=== PATIENT | female | born 1965 | race Caucasian/White ===

== ENCOUNTER 2019-11-27 12:07 | Inpatient (IN) ==
[2019-11-27] MEDS ORDERED: VANCOMYCIN/WATER FOR INJ (PEG) 1 GM/200 ML BAG IV ONE (12:39)
[2019-11-27] MEDS ORDERED: HYDROcodone/ACETAMINOPHEN 1 EACH TABLET PO ONE (12:40)
--- NOTE | 2019-11-27 12:47 | ERNOTE ---
Lower Extremity HPI - Narrative Date of Service: 11/27/19 - General Lower Extremities Pain: 2nd toe: right - redness, black top and ulcer on the side. Time Seen by Provider: 11/27/19 12:19 Source: patient Exam Limitations: no limitations - Immun/Allergies/Home Medications Immunizations: IMMUNIZATION HX Immunizations Up to Date Yes History of Influenza Vaccine Yes Hx Pneumococcal Vaccination No Allergies/Adverse Reactions: Allergies Allergy/AdvReac Type Severity Reaction Status Date / Time doxylamine Allergy itching Verified 11/27/19 12:17 [From [facility] (doxylamine)] Home Medications: HOME MEDICATIONS albuterol sulfate 90 mcg/actuation aerosol inhaler 1 inh IH Q6H 03/11/19 [Last Taken Unknown] aspirin 325 mg tablet 325 mg PO DAILY 03/11/19 [Last Taken Unknown] atenolol 25 mg tablet 25 mg PO DAILY 03/11/19 [Last Taken Unknown] cholecalciferol (vitamin D3) 125 mcg (5,000 unit) tablet 5,000 unit PO DAILY 03/11/19 [Last Taken Unknown] lisinopril 2.5 mg tablet 2.5 mg PO DAILY 03/11/19 [Last Taken Unknown] magnesium 250 mg tablet 250 mg PO BID 03/11/19 [Last Taken Unknown] meloxicam 15 mg tablet 15 mg PO DAILY 03/11/19 [Last Taken Unknown] montelukast 10 mg tablet 10 mg PO DAILY 03/11/19 [Last Taken Unknown] multivitamin 1 cap PO DAILY 03/11/19 [Last Taken Unknown] sertraline 100 mg tablet 150 mg PO DAILY tab 03/11/19 [Last Taken Unknown] trazodone 100 mg tablet 100 mg PO DAILY 03/11/19 [Last Taken Unknown] cevimeline 30 mg capsule 30 mg PO TID 07/08/19 [Last Taken Unknown] peg 400-propylene glycol 0.4 %-0.3 % eye drops 1 drp OP BID PRN 07/08/19 [Last Taken Unknown] cyclobenzaprine 5 mg tablet 5 mg PO TID PRN #60 tab 07/28/19 [Last Taken Unknown] omeprazole 40 mg capsule,delayed release 40 mg PO DAILY #90 cap 08/12/19 [Last Taken Unknown] ropinirole 5 mg tablet 20 mg PO BID #180 tab 08/12/19 [Last Taken Unknown] duloxetine 20 mg capsule,delayed release See Rx Instructions .ROUTE .COMPLEX #90 unknown measurement unit code: not specified 09/28/19 [Last Taken Unknown] insulin degludec 200 unit/mL (3 mL) subcutaneous pen 54 unit .ROUTE .COMPLEX #9 ml 10/07/19 [Last Taken Unknown] duloxetine 60 mg capsule,delayed release See Rx Instructions .ROUTE .COMPLEX #90 unknown measurement unit code: not specified 10/29/19 [Last Taken Unknown] fluticasone propionate 50 mcg/actuation nasal spray,suspension 1 spray TIM BID PRN #18.2 ml 11/26/19 [Last Taken Unknown] glimepiride 4 mg tablet 4 mg PO DAILY #90 tab 11/26/19 [Last Taken Unknown] simvastatin 20 mg tablet 20 mg PO DAILY #90 tab 11/26/19 [Last Taken Unknown] - Pain Score Pain Score #1 Pain Score: 7 - History of Present Illness Narrative: Ulcer between L great toe and second toe. Over the last week R second toe got red now black. Prior foot reconstruction in [place] for osteomyelitis. Diabetic but claims she still has sensation in feet. Date (Duration): 12/18/19 Occurred: last week Location of Incident: other - No injury just skin changes Reason for Fall: Reports: other - no fall Loss of Consciousness: Reports: no loss of consciousness Modifying Factors - (Improves): Reports: other - warm soaks as directed by pcp Associated Symptoms: Denies: unable to bear weight Other Injuries: Reports: none Prior Treament: Reports: similar symptoms before - R great toe got fasciitis and needed surgical debridement. Review of Systems - Review of Systems Constitutional: Present: no symptoms reported. Absent: fever, diaphoresis EYE: Present: no symptoms reported ENT: Present: no symptoms reported Musculoskeletal: Present: See HPI Skin: Present: See HPI Neurological: Present: no symptoms reported Endocrine: Absent: excessive sweating, increased thirst, increased urine Hematologic/Lymphatic: Present: no symptoms reported Medical History (Last Reviewed 11/27/19 @ 12:44 by Andrés Wilcox MD) Sjogrens syndrome (Chronic) UTI (urinary tract infection) (Acute) Calculus (=stone) (Acute) Asthma (Chronic) Major depression (Chronic) Arthritis (Chronic) Pain (Chronic) low back pain Fibromyalgia (Chronic) Type 1 diabetes (Chronic) Heart attack (Acute) CKD (chronic kidney disease) stage 3, GFR 30-59 ml/min History of necrotizing fasciitis right foot 2017 Hyperlipidemia Radiculopathy lumbosacral Sacroiliitis Spinal enthesopathy of lumbar region Trochanteric bursitis Type 2 diabetes mellitus Surgical History: Surgical History (Last Reviewed 11/27/19 @ 12:44 by Andrés Wilcox MD) History of tonsillectomy (Acute) History of hysterectomy (Acute) History of cholecystectomy (Acute) Hx of dilation and curettage (Acute) Previous section (Acute) Hx of appendectomy (Acute) History of quadruple bypass (Acute) History of bilateral carpal tunnel release Family History: Family History (Last Reviewed 11/27/19 @ 12:44 by Andrés Wilcox MD) Father Cancer Hypertension Diabetes Heart disease Arthritis Mother Cancer Diabetes Heart disease Arthritis Social History: (Last Reviewed 11/27/19 @ 12:44 by Andrés Wilcox MD) Social History: foster care: No fci: No Marital status: household members: spouse number of children: 3 current occupational status: disabled Highest education level completed: high school graduate Service: No Tobacco: Smoking Status: Former smoker second hand exposure: Yes Alcohol: alcohol intake: former Substance Use: substance use type: does not use Dietary Habits: caffeine: Yes Type: coffee Exercise: Physical activity type: none Physical Exam - Physical Exam General Appearance: Present: wd/wn, alert, no apparent distress, obese Head Exam: Present: normal inspection Ears, Nose, Throat: Present: normal ENT inspection Respiratory: Present: no respiratory distress Cardiovascular/Chest: Present: regular rate, rhythm Gastrointestinal/Abdominal: Present: soft Rectal Exam: Present: deferred Pelvic Exam: Present: deferred Back Exam: Present: normal range of motion Extremity Exam: Present: normal except - - R great toe and MTP has surgical scars and is floppy, no MTP joint remains. Second toe black dorsally with red margin and oozing ulcer on medial side, cultured. Neurological Exam: Present: alert, oriented, normal mood/affect Skin Exam: Present: normal color - Other than foot. Progress - Results and Orders Patient's Lab Results:: I have reviewed the patient's lab results. Results and Orders: CBC essentially normal, WBC 8000. Wound culture and blood culture sent to lab, CMP pending at 1300. DS Orders 11/27/19 12:34 Vancomycin Routine Laboratory Tests 11/27/19 12:50 Sodium 129 L Potassium 5.0 H BUN 38 H Creatinine 1.94 H Random Glucose 517 H - Vital Signs Patient's Vital Signs:: I have reviewed the patient's vital signs. Vital Signs: Vital Signs 11/27/19 12:12 Temperature 35.9 C L Pulse Rate 78 Respiratory Rate 16 Blood Pressure 115/62 O2 Sat by Pulse Oximetry 98 - X-Ray X-Ray #1 X-Ray: foot Interpretation: Interp. by me X-ray Comments: 2 view foot show surgically excised distal 1st MT, no other sierra abnormalities. Bones appear solid, not motheaten. DS - Progress/Reassessment Chief Complaint: Foot Injury/Pain Progress:: Unchanged Plan - Plan Plan: Abnormal renal functions, K of 5.0 and infection prompt desire to admit rather than treat outpatient. Dr. Nikolas Bowen agrees to be the admitting physician and we will consult Dr. Tim NICHOLS. Departure Clinical Impression: Diabetic foot ulcer associated with diabetes mellitus due to underlying condition, Diabetes 1.5, managed as type 1, Diabetic renal disease, Hyperglycemia due to type 1 diabetes mellitus - Departure Disposition: Short Term Hospital Inpatient Condition: Fair Referrals: Tana Hills MD [Primary Care Provider] - Nikolas Bowen DO [Staff Physician] - Olivia Dumont DPM [Staff Physician] -
[2019-11-27 12:55] LABS: Hematocrit 32.3 % (37.0-47.0); Mean Cell Volume 86.4 fl (78-100); Mean Corpuscular Hemoglobin 29.4 pg (27-31); Mean Corpuscular Hgb Conc 34.1 g/dl (32-36); Mean Platelet Volume 10.4 fl (8-12.5); Neutrophil # 5.4 K/mm3 (1.3-6.0); Neutrophil % 67.3 % (42-75.0); Platelet Count 287 K/mm3 (150-450); Red Blood Count 3.74 M/mm3 (4.2-5.4)
[2019-11-27 13:06] LABS: Albumin * 2.9 gm/dl (3.4-5.0); Anion Gap 13.2 mmol/L (6.8-13.8); BUN/Creatinine Ratio 19.6 (9.0-21.6); Bilirubin, Total 0.3 mg/dL (0.0-1.1); Ca. Corrected For Albumin 9.6 mg/dL (8.4-10.2); Carbon Dioxide 27.8 mmol/L (24-32.6); Total Protein 7.9 gm/dL (6.2-8.2)
[2019-11-27] MEDS ORDERED: ALBUTEROL SULFATE 200 PUFF INHALER IH PRN (17:19)
[2019-11-27] MEDS ORDERED: CYCLOBENZAPRINE HCL 10 MG TABLET PO PRN (17:20)
--- NOTE | 2019-11-27 18:08 | HP ---
Chief Complaint - Chief Complaint Date of Service: 11/27/19 Time of Service: 16:20 Chief Complaint: Gangrenous right second toe, Ischemic right foot, hyperglycemia with blood sugars greater than 500, dehydration, renal failure History of Present Illness: Chelsea Mauricio is a 53-year-old female who presented to the emergency room with a swollen black eschar over the dorsal aspect of the right second toe. The plantar surface is a dusky pink appearance. A wound is tender to probing. The dorsalis pedis pulse is not palpable but is audible on Doppler. Capillary refill is okay except in the right second toe. The right foot toes however are a deeper reddish color than those of the left foot. The pulses in the left foot are normal. The popliteal pulse in the right leg is palpable. The posterior tibial pulse is very weak and thready. She has a history of coronary artery disease with previous MD and had a quadruple CABG done 13 years ago. She is an insulin-dependent diabetic but only takes a basal insulin (Tresiba) and then takes a sulfonylurea. Blood sugars on admission are greater than 500. She has received 1 dose of vancomycin in the emergency room. Because of her renal insufficiency I will have the pharmacy calculate the dose. Medical History (Last Reviewed 11/27/19 @ 15:09 by Kristen Post RN) Sjogrens syndrome (Chronic) UTI (urinary tract infection) (Acute) Calculus (=stone) (Acute) Asthma (Chronic) Major depression (Chronic) Arthritis (Chronic) Pain (Chronic) low back pain Fibromyalgia (Chronic) Type 1 diabetes (Chronic) Heart attack (Acute) CKD (chronic kidney disease) stage 3, GFR 30-59 ml/min History of necrotizing fasciitis right foot 2017 Hyperlipidemia Radiculopathy lumbosacral Sacroiliitis Spinal enthesopathy of lumbar region Trochanteric bursitis Surgical History: Surgical History (Last Reviewed 11/27/19 @ 15:09 by Kristen Post RN) History of tonsillectomy (Acute) History of hysterectomy (Acute) History of cholecystectomy (Acute) Hx of dilation and curettage (Acute) Previous section (Acute) Hx of appendectomy (Acute) History of quadruple bypass (Acute) History of bilateral carpal tunnel release Family History: Family History (Last Reviewed 05/01/20 @ 15:09 by Kristen Post RN) Father Cancer Hypertension Diabetes Heart disease Arthritis Mother Cancer Diabetes Heart disease Arthritis Social History: (Last Reviewed 11/27/19 @ 15:11 by Kristen Post RN) Social History: foster care: No assisted: No Marital status: household members: spouse number of children: 3 current occupational status: disabled Highest education level completed: high school graduate Service: No Tobacco: Smoking Status: Former smoker second hand exposure: Yes Alcohol: alcohol intake: former Substance Use: substance use type: does not use Dietary Habits: caffeine: Yes Type: coffee Exercise: Physical activity type: walking Review Of Systems (GEN) - Review of Systems Generalized/Overall Review: Present: Weakness, Malaise EENTM: Present: No Symptoms Reported Respiratory: Present: No Symptoms Reported Cardiac: Present: No Symptoms Reported Abdominal: Present: No Symptoms Reported Genitourinary: Present: No Symptoms Reported Musculoskeletal: Present: No Symptoms Reported Neurological: Present: No Symptoms Reported Skin: Present: Other - Blackish purple appearance over the dorsum of the right second toe with mild serosanguineous drainage. This was cultured in the ER before vancomycin. The rest of her skin is unremarkable. There is an ulceration on the lateral aspect of the right great toe. Endocrine: Present: Other - Uncontrolled diabetes Immunizations: IMMUNIZATION HX Immunizations Up to Date Yes History of Influenza Vaccine Yes Hx Pneumococcal Vaccination No Allergies/Adverse Reactions: Allergies Allergy/AdvReac Type Severity Reaction Status Date / Time doxylamine Allergy itching Verified 11/27/19 15:11 [From [facility] (doxylamine)] Home Medications: HOME MEDICATIONS albuterol sulfate 90 mcg/actuation aerosol inhaler 1 inh IH Q6H PRN 03/11/19 [Last Taken Unknown] aspirin 325 mg tablet 325 mg PO DAILY 03/11/19 [Last Taken Unknown] atenolol 25 mg tablet 6.25 mg PO DAILY 03/11/19 [Last Taken Unknown] cholecalciferol (vitamin D3) 125 mcg (5,000 unit) tablet 5,000 unit PO DAILY 03/11/19 [Last Taken Unknown] lisinopril 2.5 mg tablet 2.5 mg PO DAILY 03/11/19 [Last Taken Unknown] magnesium 250 mg tablet 250 mg PO BID 03/11/19 [Last Taken Unknown] montelukast 10 mg tablet 10 mg PO DAILY 03/11/19 [Last Taken Unknown] multivitamin 1 each PO DAILY 03/11/19 [Last Taken Unknown] sertraline 100 mg tablet 150 mg PO DAILY tab 03/11/19 [Last Taken Unknown] trazodone 100 mg tablet 100 mg PO HS 03/11/19 [Last Taken Unknown] cevimeline 30 mg capsule 30 mg PO TID 07/08/19 [Last Taken Unknown] peg 400-propylene glycol 0.4 %-0.3 % eye drops 1 drp OP BID PRN 07/08/19 [Last Taken Unknown] cyclobenzaprine 5 mg tablet 5 mg PO TID PRN #60 tab 07/28/19 [Last Taken Unknown] omeprazole 40 mg capsule,delayed release 40 mg PO DAILY #90 cap 08/12/19 [Last Taken Unknown] ropinirole 5 mg tablet 20 mg PO BID #180 tab 08/12/19 [Last Taken Unknown] fluticasone propionate 50 mcg/actuation nasal spray,suspension 1 spray TIM BID PRN #18.2 ml 11/26/19 [Last Taken Unknown] glimepiride 4 mg tablet 4 mg PO DAILY #90 tab 11/26/19 [Last Taken Unknown] simvastatin 20 mg tablet 20 mg PO DAILY #90 tab 11/26/19 [Last Taken Unknown] DULoxetine HCL [Cymbalta] 20 mg PO DAILY 11/27/19 [Last Taken Unknown] Duloxetine HCl [Cymbalta] 60 mg PO DAILY 11/27/19 [Last Taken Unknown] Insulin Degludec [Tresiba FlexTouch U-200] 68 unit SQ DAILY 11/27/19 [Last Taken Unknown] Exam - Exam Vital Signs: Vital Signs - Last Taken Temp 35.9 C L 11/27/19 15:20 Pulse 67 11/27/19 15:20 Resp 16 11/27/19 15:20 BP 101/49 11/27/19 15:20 Pulse Ox 96 11/27/19 15:20 Constitutional: Present: Alert, Oriented x3, Cooperative, Well developed, Well nourished, Mild distress ENT Exam: Present: normal ENT inspection, hearing grossly normal, pharynx normal, TMs normal Eye Exam: bilateral eye: normal inspection, PERRL, EOMI Neck: Present: non-tender, full range of motion Back Exam: Present: normal inspection, no CVA tenderness, no vertebral tenderness Breasts: Present: Exam deferred Respiratory: Present: chest non-tender, lungs clear, normal breath sounds, no respiratory distress, no accessory muscle use Cardiovascular/Chest: Present: normal peripheral pulses, regular rate, rhythm, no chest tenderness, no gallop, no JVD, no murmur, no rub Peripheral Pulses: carotid (R): 2+, carotid (L): 2+, radial (R): 2+, radial (L): 2+ Abdomen: Present: Normal bowel sounds, soft, nontender, nondistended, no rebound tenderness, no hepatospenomegaly, no masses, obese /Rectal: Present: Exam deferred Extremity: Present: normal range of motion, non-tender, normal inspection, no calf tenderness, pedal edema, slow capillary refill Skin Exam: Present: normal color, warm/dry, no cyanosis, other - Ischemic necrotic right second toe that appears gangrenous with serosanguineous drainage Lymphatic: Present: no adenopathy 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, normal cerebellar test, no motor/sensory deficits, alert, normal mood/affect, oriented x 3 Appearance: Present: appropriate appearance, appropriate insight, neat, no memory impairment, denies illness Eye contact: Present: cooperative, good eye contact, normal speech Thoughts: Present: normal thought pattern, no apparent hallucination Diagnostic Studies: Abnormal Lab Results 11/27/19 11/27/19 Range/Units 12:50 12:50 RBC 3.74 L (4.2-5.4) M/mm3 Hgb 11.0 L (12.5-16.0) gm/dL Hct 32.3 L (37.0-47.0) % Immature Gran % (Auto) 1.30 H (0.001-0.429) % Immature Gran # (Auto) 0.10 H (0.000-0.0310) K/mm3 Eosinophils % 3.5 H (0.0-3.0) % Sodium 129 L (132-142) mmol/L Potassium 5.0 H (3.4-4.6) mmol/L Chloride 93 L (97-106) mmol/L BUN 38 H (3-23) mg/dL Creatinine 1.94 H (0.4-1.4) mg/dL Est GFR (Non-Af Amer) 29 L (60-130) mL/min Random Glucose 517 H (70-110) mg/dL ALT 14 L (19-67) U/L Albumin 2.9 L (3.4-5.0) gm/dl Laboratory Results WBC 8.0 K/mm3 (4.0-10.5) 11/27/19 12:50 RBC 3.74 M/mm3 (4.2-5.4) L 11/27/19 12:50 Hgb 11.0 gm/dL (12.5-16.0) L 11/27/19 12:50 Hct 32.3 % (37.0-47.0) L 11/27/19 12:50 MCV 86.4 fl (78-100) 11/27/19 12:50 MCH 29.4 pg (27-31) 11/27/19 12:50 MCHC 34.1 g/dl (32-36) 11/27/19 12:50 RDW 13.0 % (11.5-14.0) 11/27/19 12:50 Plt Count 287 K/mm3 (150-450) 11/27/19 12:50 MPV 10.4 fl (8-12.5) 11/27/19 12:50 Immature Gran % (Auto) 1.30 % (0.001-0.429) H 11/27/19 12:50 Immature Gran # (Auto) 0.10 K/mm3 (0.000-0.0310) H 11/27/19 12:50 Neutrophils % 67.3 % (42-75.0) 11/27/19 12:50 Lymphocytes % 20.2 % (20-51) 11/27/19 12:50 Monocytes % 7.1 % (0.0-9) 11/27/19 12:50 Eosinophils % 3.5 % (0.0-3.0) H 11/27/19 12:50 Basophils % 0.6 % (0.0-1.0) 11/27/19 12:50 Nucleated RBC % 0.0 k/mm3 (0-1) 11/27/19 12:50 Neutrophils # 5.4 K/mm3 (1.3-6.0) 11/27/19 12:50 Lymphocytes # 1.61 k/mm3 (1.5-3.5) 11/27/19 12:50 Monocytes # 0.6 k/mm3 (0.0-1.0) 11/27/19 12:50 Eosinophils # 0.3 k/mm3 (0.0-0.7) 11/27/19 12:50 Absolute Basophils 0.1 k/mm3 (0.0-0.1) 11/27/19 12:50 Sodium 129 mmol/L (132-142) L 11/27/19 12:50 Plasma Sodium 136 mmol/L (130-142) 11/27/19 12:50 Potassium 5.0 mmol/L (3.4-4.6) H 11/27/19 12:50 Chloride 93 mmol/L (97-106) L 11/27/19 12:50 Carbon Dioxide 27.8 mmol/L (24-32.6) 11/27/19 12:50 Anion Gap 13.2 mmol/L (6.8-13.8) 11/27/19 12:50 BUN 38 mg/dL (3-23) H 11/27/19 12:50 Creatinine 1.94 mg/dL (0.4-1.4) H 11/27/19 12:50 Est GFR (Non-Af Amer) 29 mL/min (60-130) L 11/27/19 12:50 BUN/Creatinine Ratio 19.6 (9.0-21.6) 11/27/19 12:50 Random Glucose 517 mg/dL (70-110) H 11/27/19 12:50 Calcium 9.0 mg/dL (7.9-10.9) 11/27/19 12:50 Calcium Adj for Albumin 9.6 mg/dL (8.4-10.2) 11/27/19 12:50 Total Bilirubin 0.3 mg/dL (0.0-1.1) 11/27/19 12:50 AST 13 U/L (0-48) 11/27/19 12:50 ALT 14 U/L (19-67) L 11/27/19 12:50 Alkaline Phosphatase 113 U/L (50-170) 11/27/19 12:50 Total Protein 7.9 gm/dL (6.2-8.2) 11/27/19 12:50 Albumin 2.9 gm/dl (3.4-5.0) L 11/27/19 12:50
[2019-11-27] MEDS ORDERED: POLYVINYL ALCOHOL 150 DROP BTL EACHEYE PRN (18:33)
[2019-11-27] MEDS ORDERED: SIMVASTATIN 20 MG TABLET PO SCH (18:45)
[2019-11-27] MEDS ORDERED: INSULIN LISPRO 100 UNITS/ML VIAL SC SCH (19:04)
[2019-11-27] MEDS: ENOXAPARIN SODIUM 40 MG/0.4 ML SYRG SC SCH (19:37)
[2019-11-27] MEDS: INSULIN LISPRO 100 UNITS/ML VIAL SC SCH (19:38)
[2019-11-27] MEDS: NORMAL SALINE 1,000 ML IV PRN (19:44)
[2019-11-27] MEDS: rOPINIRole HCL 1 MG TABLET PO SCH (20:26)
[2019-11-27] MEDS: MAGNESIUM OXIDE 400 MG TABLET PO SCH (20:26)
[2019-11-27] MEDS: traZODone HCL 50 MG TABLET PO SCH (20:26)
[2019-11-27] MEDS: COLLAGENASE CLOSTRIDIUM HIST. 30 APPL TUBE TP SCH (20:27)
[2019-11-27] MEDS: HYDROcodone/ACETAMINOPHEN 1 EACH TABLET PO PRN (21:20)
[2019-11-28 06:35] LABS: Hematocrit 31.2 % (37.0-47.0); Hemoglobin 10.3 gm/dL (12.5-16.0); Mean Cell Volume 87.2 fl (78-100); Mean Corpuscular Hemoglobin 28.8 pg (27-31); Mean Platelet Volume 9.8 fl (8-12.5); Neutrophil # 3.7 K/mm3 (1.3-6.0); Neutrophil % 58.6 % (42-75.0); Platelet Count 262 K/mm3 (150-450); Red Blood Count 3.58 M/mm3 (4.2-5.4); Red Cell Distribution Width 13.1 % (11.5-14.0); White Blood Count 6.3 K/mm3 (4.0-10.5)
[2019-11-28 06:51] LABS: Albumin * 2.7 gm/dl (3.4-5.0); Anion Gap 12.3 mmol/L (6.8-13.8); BUN/Creatinine Ratio 23.6 (9.0-21.6); Bilirubin, Total 0.3 mg/dL (0.0-1.1); Ca. Corrected For Albumin 9.8 mg/dL (8.4-10.2); Calcium * 9.1 mg/dL (7.9-10.9); Carbon Dioxide 29.4 mmol/L (24-32.6); Potassium 4.7 mmol/L (3.4-4.6); Total Protein 7.3 gm/dL (6.2-8.2)
[2019-11-28] MEDS ORDERED: INSULIN ASPART 100 UNITS/ML VIAL SC SCH (07:00)
[2019-11-28] MEDS ORDERED: ALBUTEROL SULFATE 2.5 MG/0.5 ML VIAL.NEB IH PRN (07:15)
[2019-11-28] MEDS ORDERED: INSULIN LISPRO 100 UNITS/ML VIAL SC SCH (07:30)
[2019-11-28] MEDS: NORMAL SALINE 1,000 ML IV PRN (07:35)
[2019-11-28] MEDS: HYDROcodone/ACETAMINOPHEN 1 EACH TABLET PO PRN ×2 (07:44→22:48)
[2019-11-28] MEDS: INSULIN LISPRO 100 UNITS/ML VIAL SC SCH ×3 (07:46→16:47)
[2019-11-28] MEDS: VANCOMYCIN/WATER FOR INJ (PEG) 1.5 GM/300 ML BAG IV SCH (07:56)
[2019-11-28] MEDS: rOPINIRole HCL 1 MG TABLET PO SCH ×2 (08:00→21:03)
[2019-11-28] MEDS: SERTRALINE HCL 50 MG TABLET PO SCH (08:00)
[2019-11-28] MEDS: MAGNESIUM OXIDE 400 MG TABLET PO SCH ×2 (08:00→21:03)
[2019-11-28] MEDS: DULoxetine HCL 30 MG CAPSULE.SA PO SCH (08:00)
[2019-11-28] MEDS: ASPIRIN 81 MG TABLET.DR PO SCH (08:01)
[2019-11-28] MEDS: ATENOLOL 25 MG TABLET PO SCH (08:01)
[2019-11-28] MEDS: COLLAGENASE CLOSTRIDIUM HIST. 30 APPL TUBE TP SCH (08:01)
[2019-11-28] MEDS: PANTOPRAZOLE SODIUM 40 MG TABLET.EC PO SCH (08:01)
[2019-11-28] MEDS: LISINOPRIL 2.5 MG TABLET PO SCH (08:01)
[2019-11-28] MEDS: INSULIN GLARGINE,HUM.REC.ANLOG 100 UNITS/ML VIAL SC SCH (08:08)
[2019-11-28] MEDS ORDERED: SERTRALINE HCL 100 MG TABLET PO SCH (09:00)
[2019-11-28] MEDS ORDERED: MONTELUKAST SODIUM 10 MG TABLET PO SCH (09:00)
--- NOTE | 2019-11-28 11:34 | PN ---
Subjective - Date and Time Seen Date: 11/28/19 Time: 09:00 Subjective Narrative: Chelsea did not rest well last night but otherwise is feeling better. Her blood sugar did get to 80 and she was beginning to feel hypoglycemic. They gave her a snack which resolved that. She had received sliding scale insulin when her blood sugar was 410 and it dropped to 80. This morning's blood sugar was in the mid 200s. She has been afebrile. The foot does not appear appreciably changed to me today. The toe remains black on the dorsum and the tip. The great toe ulcer appears clean and not infected. The toes are adequately now. She is receiving vancomycin 1.5 g/day and the pharmacy is managing that dose. She will need a trough level done tomorrow. Objective - Review of Systems Generalized/Overall Review: Reports: No Symptoms Reported, Fatigue EENTM: Reports: No Symptoms Reported Respiratory: Reports: No Symptoms Reported Cardiac: Reports: No Symptoms Reported Abdominal: Reports: No Symptoms Reported Genitourinary Symptoms: Reports: No Symptoms Reported Musculoskeletal Complaints: Reports: Other - Okay except for the right second toe and great toe. Those appear unchanged from yesterday to me. Neurological: Reports: No Symptoms Reported Skin: Reports: No Symptoms Reported, Other - Black eschar of the dorsum of the second toe that is probably gangrenous. This wraps over the end of the toe. The plantar aspect of the toe is pink to violaceous in color. - Vitals Vitals: Last Vital Signs Temp 36.5 C 11/28/19 06:00 Pulse 71 11/28/19 08:01 Resp 16 11/28/19 06:00 BP 142/63 H 11/28/19 08:01 Pulse Ox 98 11/28/19 06:00 - Abnormal Lab Findings Abnormal Lab Findings: Abnormal Lab Results 11/27/19 11/27/19 11/28/19 Range/Units 12:50 12:50 06:26 RBC 3.74 L 3.58 L (4.2-5.4) M/mm3 Hgb 11.0 L 10.3 L (12.5-16.0) gm/dL Hct 32.3 L 31.2 L (37.0-47.0) % Immature Gran % (Auto) 1.30 H 2.50 H (0.001-0.429) % Immature Gran # (Auto) 0.10 H 0.16 H (0.000-0.0310) K/mm3 Eosinophils % 3.5 H 4.8 H (0.0-3.0) % ESR (0-15) mm/hr Sodium 129 L (132-142) mmol/L Potassium 5.0 H (3.4-4.6) mmol/L Chloride 93 L (97-106) mmol/L BUN 38 H (3-23) mg/dL Creatinine 1.94 H (0.4-1.4) mg/dL Est GFR (Non-Af Amer) 29 L (60-130) mL/min BUN/Creatinine Ratio (9.0-21.6) Random Glucose 517 H (70-110) mg/dL ALT 14 L (19-67) U/L Albumin 2.9 L (3.4-5.0) gm/dl 11/28/19 11/28/19 Range/Units 06:26 06:26 RBC (4.2-5.4) M/mm3 Hgb (12.5-16.0) gm/dL Hct (37.0-47.0) % Immature Gran % (Auto) (0.001-0.429) % Immature Gran # (Auto) (0.000-0.0310) K/mm3 Eosinophils % (0.0-3.0) % ESR 109 H (0-15) mm/hr Sodium (132-142) mmol/L Potassium 4.7 H (3.4-4.6) mmol/L Chloride (97-106) mmol/L BUN 38 H (3-23) mg/dL Creatinine 1.61 H (0.4-1.4) mg/dL Est GFR (Non-Af Amer) 35 L D (60-130) mL/min BUN/Creatinine Ratio 23.6 H (9.0-21.6) Random Glucose 220 H D (70-110) mg/dL ALT 13 L (19-67) U/L Albumin 2.7 L (3.4-5.0) gm/dl - EKG/Xray Findings XRAY: Right foot Interpretation: Reviewed by me - Exam Constitutional: Present: Alert, Oriented x3, Cooperative, Well developed, Well nourished, No distress ENT Exam: Present: normal ENT inspection, hearing grossly normal, pharynx normal, TMs normal Neck: Present: non-tender, full range of motion, supple, normal inspection Breasts: Present: Exam deferred Respiratory: Present: chest non-tender, lungs clear, normal breath sounds, no respiratory distress, no accessory muscle use Cardiovascular/Chest: Present: normal peripheral pulses, regular rate, rhythm, no chest tenderness, no edema, no gallop, no JVD, no murmur, no rub, other - The right dorsalis pedis is not palpable but it is audible on Doppler. The p osterior tibial is weaker than it is on the left but it is palpable. Pulses in the left foot are normal. 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 Continue IV vancomycin 2. Continue dressing as ordered 3. Continue to monitor blood sugars before meals and bedtime. 4. Continue sliding scale mealtime insulin. Bedtime short acting insulin will be based on blood sugar readings in my approval. - Problems/Diagnosis (1) Gangrene associated with type 2 diabetes mellitus Problem: Acute (2) Diabetic foot ulcer associated with diabetes mellitus due to underlying condition Problem: Acute Qualifiers: Diabetic foot ulcer location: toe Laterality: right Non-pressure ulcer stage: unspecified non-pressure ulcer stage Qualified Code(s): E08.621 - Diabetes mellitus due to underlying condition with foot ulcer; L97.519 - Non- pressure chronic ulcer of other part of right foot with unspecified severity (3) Diabetic renal disease Problem: Acute Qualifiers: Diabetes mellitus type: type 2 Qualified Code(s): E11.21 - Type 2 diabetes mellitus with diabetic nephropathy (4) History of quadruple bypass Problem: Acute
[2019-11-28] MEDS: CEVIMELINE HCL 30 MG PO SCH ×3 (12:57→16:48)
[2019-11-28] MEDS: ACETAMINOPHEN 500 MG TABLET PO PRN (15:12)
[2019-11-28] MEDS: ENOXAPARIN SODIUM 40 MG/0.4 ML SYRG SC SCH (21:03)
[2019-11-28] MEDS: MONTELUKAST SODIUM 10 MG TABLET PO SCH (21:04)
[2019-11-28] MEDS: SIMVASTATIN 20 MG TABLET PO SCH (21:04)
[2019-11-28] MEDS: traZODone HCL 50 MG TABLET PO SCH (21:05)
[2019-11-29 06:33] LABS: Hematocrit 29.8 % (37.0-47.0); Hemoglobin 9.9 gm/dL (12.5-16.0); Mean Cell Volume 86.6 fl (78-100); Mean Corpuscular Hemoglobin 28.8 pg (27-31); Mean Corpuscular Hgb Conc 33.2 g/dl (32-36); Mean Platelet Volume 9.3 fl (8-12.5); Neutrophil # 3.7 K/mm3 (1.3-6.0); Neutrophil % 57.1 % (42-75.0); Platelet Count 274 K/mm3 (150-450); Red Blood Count 3.44 M/mm3 (4.2-5.4); Red Cell Distribution Width 13.1 % (11.5-14.0); White Blood Count 6.4 K/mm3 (4.0-10.5)
[2019-11-29 06:48] LABS: Albumin * 2.6 gm/dl (3.4-5.0); Anion Gap 12.7 mmol/L (6.8-13.8); BUN/Creatinine Ratio 20.1 (9.0-21.6); Bilirubin, Total 0.3 mg/dL (0.0-1.1); Ca. Corrected For Albumin 9.8 mg/dL (8.4-10.2); Carbon Dioxide 27.9 mmol/L (24-32.6); Potassium 4.6 mmol/L (3.4-4.6); Total Protein 7.2 gm/dL (6.2-8.2); Vancomycin Trough 14.9 mcg/mL (10.0-20.0)
[2019-11-29] MEDS: INSULIN LISPRO 100 UNITS/ML VIAL SC SCH ×3 (06:56→16:48)
[2019-11-29] MEDS: VANCOMYCIN/WATER FOR INJ (PEG) 1.5 GM/300 ML BAG IV SCH (07:05)
[2019-11-29] MEDS: ACETAMINOPHEN 500 MG TABLET PO PRN (07:08)
[2019-11-29] MEDS: ATENOLOL 25 MG TABLET PO SCH (08:51)
[2019-11-29] MEDS: PANTOPRAZOLE SODIUM 40 MG TABLET.EC PO SCH (08:51)
[2019-11-29] MEDS: rOPINIRole HCL 1 MG TABLET PO SCH ×2 (08:51→20:30)
[2019-11-29] MEDS: SERTRALINE HCL 50 MG TABLET PO SCH (08:51)
[2019-11-29] MEDS: LISINOPRIL 2.5 MG TABLET PO SCH (08:51)
[2019-11-29] MEDS: MAGNESIUM OXIDE 400 MG TABLET PO SCH ×2 (08:51→20:30)
[2019-11-29] MEDS: DULoxetine HCL 30 MG CAPSULE.SA PO SCH (08:51)
[2019-11-29] MEDS: ASPIRIN 81 MG TABLET.DR PO SCH (08:52)
[2019-11-29] MEDS: CEVIMELINE HCL 30 MG PO SCH ×3 (08:52→16:47)
[2019-11-29] MEDS: COLLAGENASE CLOSTRIDIUM HIST. 30 APPL TUBE TP SCH (08:52)
[2019-11-29] MEDS: INSULIN GLARGINE,HUM.REC.ANLOG 100 UNITS/ML VIAL SC SCH (08:55)
[2019-11-29] MEDS: HYDROcodone/ACETAMINOPHEN 1 EACH TABLET PO PRN (10:57)
--- NOTE | 2019-11-29 11:52 | PN ---
Subjective - Date and Time Seen Date: 11/29/19 Time: 10:00 Subjective Narrative: Chelsea has had an uneventful night. She has had more pain in that right toe this morning. It is being dressed with Santyl and nonstick dressings. In removing the dressings the lateral aspect of the right great toe ulcer is also draining. Dr. Dumont will assess these tomorrow morning and decide on a surgical approach. There is now a necrotic odor coming from the wound which is probably gas gangrene. I will continue dressing it away we have and continue with the IV antibiotics. Her blood sugars have been doing very well with the infection under control with antibiotics. Vital signs have been stable and she is afebrile. Objective - Review of Systems Generalized/Overall Review: Reports: No Symptoms Reported EENTM: Reports: No Symptoms Reported Respiratory: Reports: No Symptoms Reported Cardiac: Reports: No Symptoms Reported Abdominal: Reports: No Symptoms Reported Genitourinary Symptoms: Reports: No Symptoms Reported Musculoskeletal Complaints: Reports: Other - Gangrenous infection of the right second toe Neurological: Reports: No Symptoms Reported Skin: Reports: No Symptoms Reported, Other - The skin over the dorsum of the right second toe is more intensely black today and malodorous. Endocrine: Reports: No Symptoms Reported - Vitals Vitals: Last Vital Signs Temp 36.8 C 11/29/19 07:01 Pulse 80 11/29/19 08:51 Resp 18 11/29/19 07:01 BP 104/52 11/29/19 08:51 Pulse Ox 95 11/29/19 07:01 - Abnormal Lab Findings Abnormal Lab Findings: Abnormal Lab Results 11/29/19 11/29/19 Range/Units 06:20 06:20 RBC 3.44 L (4.2-5.4) M/mm3 Hgb 9.9 L (12.5-16.0) gm/dL Hct 29.8 L (37.0-47.0) % Immature Gran % (Auto) 3.60 H (0.001-0.429) % Immature Gran # (Auto) 0.23 H (0.000-0.0310) K/mm3 Eosinophils % 3.9 H (0.0-3.0) % BUN 27 H (3-23) mg/dL Est GFR (Non-Af Amer) 44 L D (60-130) mL/min Random Glucose 147 H D (70-110) mg/dL ALT 18 L (19-67) U/L Albumin 2.6 L (3.4-5.0) gm/dl - Exam Constitutional: Present: Alert, Oriented x3, Cooperative, Well developed, Well nourished, No distress ENT Exam: Present: normal ENT inspection, hearing grossly normal, pharynx normal, TMs normal Neck: Present: non-tender, full range of motion, supple, normal inspection, trachea midline Breasts: Present: Exam deferred Respiratory: Present: chest non-tender, lungs clear, normal breath sounds, no respiratory distress, no accessory muscle use Cardiovascular/Chest: Present: normal peripheral pulses, regular rate, rhythm, no chest tenderness, no edema, no gallop, no JVD, no murmur, no rub Abdomen: Present: Normal bowel sounds, soft, nontender, nondistended, no rebound tenderness, no hepatospenomegaly, no masses, obese /Rectal: Present: Exam deferred Extremity: Present: normal range of motion, non-tender, normal inspection, no pedal edema, no calf tenderness, normal capillary refill Skin Exam: Present: normal color, warm/dry, no cyanosis Lymphatic: Present: no adenopathy Neurologic: Present: 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 Continue current therapy including IV antibiotics and current wound management. 2. Dr. Dumont to consult and manage surgically tomorrow. 3. Repeat morning lab. - Problems/Diagnosis (1) Gangrene associated with type 2 diabetes mellitus Problem: Acute (2) Diabetic foot ulcer associated with diabetes mellitus due to underlying condition Problem: Acute Qualifiers: Diabetic foot ulcer location: toe Laterality: right Non-pressure ulcer stage: unspecified non-pressure ulcer stage Qualified Code(s): E08.621 - Diabetes mellitus due to underlying condition with foot ulcer; L97.519 - Non- pressure chronic ulcer of other part of right foot with unspecified severity (3) Diabetic renal disease Problem: Chronic Qualifiers: Diabetes mellitus type: type 2 Qualified Code(s): E11.21 - Type 2 diabetes mellitus with diabetic nephropathy (4) History of quadruple bypass Problem: Chronic
[2019-11-29] MEDS ORDERED: LEVOFLOXACIN 750 MG TABLET PO ONE (13:41)
[2019-11-29] MEDS: ENOXAPARIN SODIUM 40 MG/0.4 ML SYRG SC SCH (20:29)
[2019-11-29] MEDS: MONTELUKAST SODIUM 10 MG TABLET PO SCH (20:30)
[2019-11-29] MEDS: traZODone HCL 50 MG TABLET PO SCH (20:30)
[2019-11-29] MEDS: SIMVASTATIN 20 MG TABLET PO SCH (20:31)
[2019-11-30] MEDS: INSULIN LISPRO 100 UNITS/ML VIAL SC SCH ×3 (06:50→17:10)
[2019-11-30] MEDS: LISINOPRIL 2.5 MG TABLET PO SCH (09:06)
[2019-11-30] MEDS: ASPIRIN 81 MG TABLET.DR PO SCH (09:06)
[2019-11-30] MEDS: SERTRALINE HCL 50 MG TABLET PO SCH (09:06)
[2019-11-30] MEDS: ATENOLOL 25 MG TABLET PO SCH (09:06)
[2019-11-30] MEDS: DULoxetine HCL 30 MG CAPSULE.SA PO SCH (09:07)
[2019-11-30] MEDS: PANTOPRAZOLE SODIUM 40 MG TABLET.EC PO SCH (09:07)
[2019-11-30] MEDS: INSULIN GLARGINE,HUM.REC.ANLOG 100 UNITS/ML VIAL SC SCH (09:07)
[2019-11-30] MEDS: CEVIMELINE HCL 30 MG PO SCH ×4 (09:07→17:11)
[2019-11-30] MEDS: rOPINIRole HCL 1 MG TABLET PO SCH ×2 (09:07→21:23)
[2019-11-30] MEDS: MAGNESIUM OXIDE 400 MG TABLET PO SCH ×2 (09:10→21:23)
--- NOTE | 2019-11-30 10:59 | PN ---
Subjective - Date and Time Seen Date: 11/30/19 Time: 09:30 Objective - Review of Systems Generalized/Overall Review: Reports: No Symptoms Reported EENTM: Reports: No Symptoms Reported Respiratory: Reports: No Symptoms Reported Cardiac: Reports: No Symptoms Reported Abdominal: Reports: No Symptoms Reported Genitourinary Symptoms: Reports: No Symptoms Reported Musculoskeletal Complaints: Reports: Other - Right foot pain Neurological: Reports: No Symptoms Reported Skin: Reports: Other - Gas gangrene of the right second toe Endocrine: Reports: No Symptoms Reported, Other - Blood sugars have been well c ontrolled in the 140 range - Vitals Vitals: Last Vital Signs Temp 36.5 C 11/30/19 10:36 Pulse 74 11/30/19 10:36 Resp 14 11/30/19 10:36 BP 119/57 11/30/19 10:36 Pulse Ox 94 11/30/19 10:36 - EKG/Xray Findings EKG: NSR EKG read: Interp. by me - Exam Constitutional: Present: Alert, Oriented x3, Cooperative, Well developed, Well nourished, No distress ENT Exam: Present: normal ENT inspection, hearing grossly normal, pharynx normal, TMs normal Neck: Present: non-tender, full range of motion, supple, normal inspection, trachea midline Breasts: Present: Exam deferred Respiratory: Present: chest non-tender, lungs clear, normal breath sounds, no respiratory distress, no accessory muscle use Cardiovascular/Chest: Present: normal peripheral pulses, regular rate, rhythm, no chest tenderness, no edema, no gallop, no JVD, no murmur, no rub Abdomen: Present: Normal bowel sounds, soft, nontender, nondistended, no rebound tenderness, no hepatospenomegaly, no masses, obese /Rectal: Present: Exam deferred Extremity: Present: normal range of motion, non-tender, normal inspection, no pedal edema, no calf tenderness, normal capillary refill, other - The dorsum of the right second toe is black and malodorous. The plantar surface is more violaceous in color. 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 II-XII nml as tested, normal cerebellar test, no motor/sensory deficits, alert, normal mood/affect, oriented x 3 Appearance: Present: appropriate appearance, appropriate insight, neat, no memory impairment Eye contact: Present: cooperative, good eye contact, normal speech Thoughts: Present: normal thought pattern, no apparent hallucination Assessment/Plan - Problems/Diagnosis (1) Gangrene associated with type 2 diabetes mellitus Problem: Acute (2) Diabetic foot ulcer associated with diabetes mellitus due to underlying condition Problem: Acute Qualifiers: Diabetic foot ulcer location: toe Laterality: right Non-pressure ulcer stage: unspecified non-pressure ulcer stage Qualified Code(s): E08.621 - Diabetes mellitus due to underlying condition with foot ulcer; L97.519 - Non- pressure chronic ulcer of other part of right foot with unspecified severity (3) Diabetic renal disease Problem: Chronic Qualifiers: Diabetes mellitus type: type 2 Qualified Code(s): E11.21 - Type 2 diabetes mellitus with diabetic nephropathy (4) History of quadruple bypass Problem: Chronic
[2019-11-30] MEDS: LEVOFLOXACIN 750 MG TABLET PO SCH (11:42)
[2019-11-30] MEDS: HYDROcodone/ACETAMINOPHEN 1 EACH TABLET PO PRN (11:45)
--- NOTE | 2019-11-30 11:57 | CONS ---
[facility] - General Date of Service: 11/30/19 Narrative: Patient is seen today on consultation from Dr. Bowen for gangrenous right second toe. Patient states that she has been treating an ulceration to this toe for approximately 1 month. She was applying betadine solution and covering with a dry dressing as her previous foot doctor had instructed for a previous ulceration. States she felt the toe had been improving up until about 1 week ago. She noticed the skin on the toe looked different, then it started to turn black. It became very painful for her so she presented to our ED last Saturday and was admitted. She was placed on antibiotics, xrays were done showing no bone destruction or gas in the tissues. Culture was obtained and results have been reviewed. She does have a history of necrotizing fasciitis in this same foot at the 1st [facility] that was treated with I&D and removal of distal 1st metatarsal and base of proximal phalanx of great toe. She states the toe is very loose and catches on things very easily. She has rubbed an ulceration on the lateral aspect of this toe as well, however it has remained stable. Currently the great toe and 2nd toe are being dressed with Santyl, telfa pads, and roll gauze secured with tape. She denies any symptoms of nausea, vomiting, fevers or chills. Does relate pain in the toe and the dorsum of the foot. Source: patient Exam Limitations: no limitations - History of Present Illness Timing/Duration: getting worse Severity: severe Allergies/Adverse Reactions: Allergies doxylamine [From Signicast (doxylamine)] Allergy (Verified 11/27/19 15:11) itching Home Medications: Home Medications Medication Instructions Recorded Last Taken albuterol sulfate 90 mcg/actuation 1 inh IH Q6H PRN 03/11/19 Unknown aerosol inhaler aspirin 325 mg tablet 325 mg PO DAILY 03/11/19 Unknown atenolol 25 mg tablet 6.25 mg PO DAILY 03/11/19 Unknown cholecalciferol (vitamin D3) 125 5,000 unit PO DAILY 03/11/19 Unknown mcg (5,000 unit) tablet lisinopril 2.5 mg tablet 2.5 mg PO DAILY 03/11/19 Unknown magnesium 250 mg tablet 250 mg PO BID 03/11/19 Unknown montelukast 10 mg tablet 10 mg PO DAILY 03/11/19 Unknown multivitamin 1 each PO DAILY 03/11/19 Unknown sertraline 100 mg tablet 150 mg PO DAILY tab 03/11/19 Unknown trazodone 100 mg tablet 100 mg PO HS 03/11/19 Unknown cevimeline 30 mg capsule 30 mg PO TID 07/08/19 Unknown peg 400-propylene glycol 0.4 %-0.3 1 drp OP BID PRN 07/08/19 Unknown % eye drops cyclobenzaprine 5 mg tablet 5 mg PO TID PRN #60 tab 07/28/19 Unknown omeprazole 40 mg capsule,delayed 40 mg PO DAILY #90 cap 08/12/19 Unknown release ropinirole 5 mg tablet 20 mg PO BID #180 tab 08/12/19 Unknown fluticasone propionate 50 1 spray TIM BID PRN #18.2 ml 11/26/19 Unknown mcg/actuation nasal spray,suspension glimepiride 4 mg tablet 4 mg PO DAILY #90 tab 11/26/19 Unknown simvastatin 20 mg tablet 20 mg PO DAILY #90 tab 11/26/19 Unknown DULoxetine HCL [Cymbalta] 20 mg PO DAILY 11/27/19 Unknown Duloxetine HCl [Cymbalta] 60 mg PO DAILY 11/27/19 Unknown Insulin Degludec [Tresiba 68 unit SQ DAILY 11/27/19 Unknown FlexTouch U-200] Medications - Medications Current Medications: Current Medications Acetaminophen (Tylenol) 500 mg PO Q6H PRN PRN Reason: Mild pain (pain scale 1-3) Stop: 12/27/19 21:07 Last Admin: 11/29/19 07:08 Dose: 500 mg Documented by: Hydrocodone Bitart/Acetaminophen (Elton 5-325) 1 each PO Q6H PRN PRN Reason: Pain Stop: 12/27/19 21:06 Last Admin: 11/30/19 11:45 Dose: 1 each Documented by: Aspirin (Aspirin Enteric Coated) 81 mg PO DAILY [facility] Stop: 12/28/19 09:01 Last Admin: 11/30/19 09:06 Dose: 81 mg Documented by: Atenolol (Tenormin) 6.25 mg PO DAILY [facility] Stop: 12/28/19 09:01 Last Admin: 11/30/19 09:06 Dose: 6.25 mg Documented by: Collagenase (Santyl) 1 appl TP DAILY [facility] Stop: 12/27/19 18:46 Last Admin: 11/29/19 08:52 Dose: 1 appl Documented by: Duloxetine HCl (Cymbalta) 60 mg PO DAILY [facility] Stop: 12/28/19 09:01 Last Admin: 11/30/19 09:07 Dose: 60 mg Documented by: Enoxaparin Sodium (Lovenox) 40 mg SC Q24H [facility] Stop: 12/27/19 20:01 Last Admin: 11/29/19 20:29 Dose: 40 mg Documented by: Sodium Chloride (Sodium Chloride 0.9%) 1,000 mls @ 83 mls/hr IV .Q12H3M PRN PRN Reason: HYDRATION Last Infusion: 11/28/19 22:45 Dose: Infused Documented by: Insulin Glargine (Lantus) 68 units SC DAILY [facility] Stop: 12/28/19 09:01 Last Admin: 11/30/19 09:07 Dose: 68 units Documented by: Insulin Human Lispro (Humalog) 0 units SC ACINS [facility]; Protocol Stop: 12/27/19 19:16 Last Admin: 11/30/19 11:43 Dose: 12 units Documented by: Levofloxacin (Levaquin) 750 mg PO DAILY@1100 [facility]; Protocol Stop: 12/30/19 11:31 Last Admin: 11/30/19 11:42 Dose: 750 mg Documented by: Lisinopril (Zestril) 2.5 mg PO DAILY [facility] Stop: 12/28/19 09:01 Last Admin: 11/30/19 09:06 Dose: 2.5 mg Documented by: Magnesium Oxide (Mag-Ox 400) 400 mg PO BID [facility] Stop: 12/27/19 21:01 Last Admin: 11/30/19 09:10 Dose: 400 mg Documented by: Montelukast Sodium (Singulair) 10 mg PO HS [facility] Stop: 12/28/19 21:01 Last Admin: 11/29/19 20:30 Dose: 10 mg Documented by: Cevimeline Hcl 30 Mg 30 mg PO TID [facility] Stop: 12/28/19 09:01 Last Admin: 11/30/19 11:46 Dose: 30 mg Documented by: Pantoprazole Sodium (Protonix) 40 mg PO DAILY [facility] Stop: 12/28/19 09:01 Last Admin: 11/30/19 09:07 Dose: 40 mg Documented by: Ropinirole HCl (Requip) 2 mg PO BID [facility] Stop: 12/27/19 21:01 Last Admin: 11/30/19 09:07 Dose: 2 mg Documented by: Sertraline HCl (Zoloft) 150 mg PO DAILY [facility] Stop: 12/28/19 09:01 Last Admin: 11/30/19 09:06 Dose: 150 mg Documented by: Simvastatin (Zocor) 20 mg PO HS [facility] Stop: 12/28/19 21:01 Last Admin: 11/29/19 20:31 Dose: 20 mg Documented by: Trazodone HCl (Desyrel) 100 mg PO HS [facility] Stop: 12/27/19 21:01 Last Admin: 11/29/19 20:30 Dose: 100 mg Documented by: Review of Systems - Review of Systems Generalized/Overall Review: Absent: Weakness, Chills, Fever Respiratory: Absent: Shortness of Breath Cardiac: Absent: Edema Abdominal: Absent: Nausea, Vomiting, Diarrhea Musculoskeletal: Present: Other - right 2nd toe pain Neurological: Absent: Tingling Skin: Present: Other - ulceration right great toe, black right 2nd toe Endocrine: Absent: Increased Hunger, Increased Thirst Physical Examination - Exam Vital Signs: Vital Signs - Last Taken Temp 36.5 C 11/30/19 10:36 Pulse 74 11/30/19 10:36 Resp 14 11/30/19 10:36 BP 119/57 11/30/19 10:36 Pulse Ox 94 11/30/19 10:36 O2 Oxygen Delivery Method Room Air Constitutional: Present: Alert, Oriented x3, Cooperative Peripheral Pulses: dorsalis-pedis (R): 1+ - PT 1+, CRFT brisk to toes 1, 3, 4, 5 Extremity: Present: swelling - right forefoot, other - pain right 2nd toe Skin Exam: Present: other - Right 2nd toe with nearly 75% black, gangrenous changes to the dorsum and tip of the digit, plantar surface dusky in appearance. Periphery of gangrenous tissues with foul smelling sero-purulent drainage with skin maceration. Base of the toe erythematous, and this does extend in to the dorsum of the forefoot. Ulceration to lateral great toe measuring approximately 1 x 1 x 0.4 cm. No tunneling or undermining. Loss of tissue to full thickness with exposure of subcutaneous fat layer. Base with mostly yellow fibrotic slough tissue. Surrounding tissue macerated, otherwise pink and intact. There is a moderate amount of serous drainage. No exposed tendon or bone at this time. Appearance: Present: appropriate appearance Eye contact: Present: cooperative Thoughts: Present: normal thought pattern - Results and Findings: Lab/Microbiology results last 24 hrs: Culture 11/27/19 13:21 Blood Culture - Preliminary Blood NO GROWTH AFTER 48 HOURS 11/27/19 12:50 Blood Culture - Preliminary Blood NO GROWTH AFTER 48 HOURS - Assessments/Findings (1) Gangrene associated with type 2 diabetes mellitus Diagnosis(s): Discussed with Chelsea the condition of the toe and my recommended treatment plan. I recommend amputation of the right 2nd toe. It is no longer viable and attempts at salvage will not be successful given the appearance of the toe. I further believe that amputating this toe will allow better healing of the ulcer of the great toe as there would no longer be a pressure source on the lateral aspect of this toe. Surgery is discussed with patient in detail, including risks, benefits, anesthesia, and post-operative care. No guarantees are given or implied. She is in agreement in proceeding with amputation of the right 2nd toe. Advised that with current restrictions with COVID-19, I do have to have this surgery approved by a committee prior to scheduling. I will submit information to them for approval. My hope is to schedule this surgery for to . She will be NPO after 6 am tomorrow morning if approved. Consent will be obtained for amputation of right 2nd toe, to be performed pending approval. Will continue on current antibiotics. A new dressing of dry gauze and zofia secured with tape is applied today. Problem: Acute
[2019-11-30] MEDS: COLLAGENASE CLOSTRIDIUM HIST. 30 APPL TUBE TP SCH (15:53)
[2019-11-30] MEDS: traZODone HCL 50 MG TABLET PO SCH (21:22)
[2019-11-30] MEDS: ENOXAPARIN SODIUM 40 MG/0.4 ML SYRG SC SCH (21:22)
[2019-11-30] MEDS: SIMVASTATIN 20 MG TABLET PO SCH (21:23)
[2019-11-30] MEDS: MONTELUKAST SODIUM 10 MG TABLET PO SCH (21:23)
[2019-12-01] MEDS ORDERED: LIDOCAINE HCL 50 ML VIAL IJ ONE (06:00)
[2019-12-01] MEDS ORDERED: BUPIVACAINE HCL 50 ML VIAL IJ ONE (06:00)
[2019-12-01] MEDS: ACETAMINOPHEN 500 MG TABLET PO PRN (06:57)
[2019-12-01] MEDS: INSULIN LISPRO 100 UNITS/ML VIAL SC SCH ×3 (06:58→16:40)
[2019-12-01 07:59] LABS: Hematocrit 30.4 % (37.0-47.0); Hemoglobin 10.2 gm/dL (12.5-16.0); Mean Cell Volume 87.6 fl (78-100); Mean Corpuscular Hemoglobin 29.4 pg (27-31); Mean Corpuscular Hgb Conc 33.6 g/dl (32-36); Mean Platelet Volume 9.2 fl (8-12.5); Platelet Count 341 K/mm3 (150-450); Red Blood Count 3.47 M/mm3 (4.2-5.4); Red Cell Distribution Width 13.2 % (11.5-14.0); White Blood Count 7.2 K/mm3 (4.0-10.5)
[2019-12-01 08:01] LABS: Total Cells Counted 100
[2019-12-01 08:07] LABS: Albumin * 2.7 gm/dl (3.4-5.0); Anion Gap 12.1 mmol/L (6.8-13.8); BUN/Creatinine Ratio 16.8 (9.0-21.6); Bilirubin, Total 0.3 mg/dL (0.0-1.1); Ca. Corrected For Albumin 9.6 mg/dL (8.4-10.2); Calcium * 8.9 mg/dL (7.9-10.9); Carbon Dioxide 27.5 mmol/L (24-32.6); Potassium 4.6 mmol/L (3.4-4.6); Total Protein 7.4 gm/dL (6.2-8.2)
[2019-12-01 08:12] LABS: Eosinophil 4 % (0-3); Lymphocyte 23 % (20-51); Monocyte 12 % (0-9); Neutrophil 61 % (42-75); Neutrophil # 4.4 K/mm3 (1.3-6.0); Platelet Estimate Normal (NORMAL); RBC Morphology Normal (NORMAL)
[2019-12-01] MEDS: PANTOPRAZOLE SODIUM 40 MG TABLET.EC PO SCH (08:32)
[2019-12-01] MEDS: DULoxetine HCL 30 MG CAPSULE.SA PO SCH (08:32)
[2019-12-01] MEDS: CEVIMELINE HCL 30 MG PO SCH ×3 (08:32→16:46)
[2019-12-01] MEDS: MAGNESIUM OXIDE 400 MG TABLET PO SCH ×2 (08:32→20:08)
[2019-12-01] MEDS: rOPINIRole HCL 1 MG TABLET PO SCH ×2 (08:33→20:08)
[2019-12-01] MEDS: COLLAGENASE CLOSTRIDIUM HIST. 30 APPL TUBE TP SCH (08:33)
[2019-12-01] MEDS: SERTRALINE HCL 50 MG TABLET PO SCH (08:33)
[2019-12-01] MEDS: ASPIRIN 81 MG TABLET.DR PO SCH (08:35)
[2019-12-01] MEDS: ATENOLOL 25 MG TABLET PO SCH (08:56)
[2019-12-01] MEDS: LISINOPRIL 2.5 MG TABLET PO SCH (08:56)
[2019-12-01] MEDS: INSULIN GLARGINE,HUM.REC.ANLOG 100 UNITS/ML VIAL SC SCH (08:56)
--- NOTE | 2019-12-01 12:48 | PN ---
[facility] Note - Interim Date: 12/01/19 Time: 12:15 Narrative: 12/01/19 12:46 In to see patient to tim for surgery this afternoon. She denies any questions regarding her procedure. Does ask how long she will need to remain in the hospital following amputation. Advised that is dependent upon how her tissues look when the toe is amputated. She states understanding of this. Plan to proceed with surgery as discussed. There have been no changes in her condition.
[2019-12-01] MEDS: NORMAL SALINE 1,000 ML IV PRN (14:00)
--- NOTE | 2019-12-01 15:20 | ANES ---
Anesthesia Pre Procedure Eval Vitals/Labs: Last Vital Signs Temp 36.4 C 12/01/19 14:53 Pulse 68 12/01/19 14:53 Resp 18 12/01/19 14:53 BP 107/55 12/01/19 14:53 Pulse Ox 93 12/01/19 14:53 HOME MEDICATIONS albuterol sulfate 90 mcg/actuation aerosol inhaler 1 inh IH Q6H PRN 03/11/19 [Last Taken Unknown] aspirin 325 mg tablet 325 mg PO DAILY 03/11/19 [Last Taken Unknown] atenolol 25 mg tablet 6.25 mg PO DAILY 03/11/19 [Last Taken Unknown] cholecalciferol (vitamin D3) 125 mcg (5,000 unit) tablet 5,000 unit PO DAILY 03/11/19 [Last Taken Unknown] lisinopril 2.5 mg tablet 2.5 mg PO DAILY 03/11/19 [Last Taken Unknown] magnesium 250 mg tablet 250 mg PO BID 03/11/19 [Last Taken Unknown] montelukast 10 mg tablet 10 mg PO DAILY 03/11/19 [Last Taken Unknown] multivitamin 1 each PO DAILY 03/11/19 [Last Taken Unknown] sertraline 100 mg tablet 150 mg PO DAILY tab 03/11/19 [Last Taken Unknown] trazodone 100 mg tablet 100 mg PO HS 03/11/19 [Last Taken Unknown] cevimeline 30 mg capsule 30 mg PO TID 07/08/19 [Last Taken Unknown] peg 400-propylene glycol 0.4 %-0.3 % eye drops 1 drp OP BID PRN 07/08/19 [Last Taken Unknown] cyclobenzaprine 5 mg tablet 5 mg PO TID PRN #60 tab 07/28/19 [Last Taken Unknown] omeprazole 40 mg capsule,delayed release 40 mg PO DAILY #90 cap 08/12/19 [Last Taken Unknown] ropinirole 5 mg tablet 20 mg PO BID #180 tab 08/12/19 [Last Taken Unknown] fluticasone propionate 50 mcg/actuation nasal spray,suspension 1 spray TIM BID PRN #18.2 ml 11/26/19 [Last Taken Unknown] glimepiride 4 mg tablet 4 mg PO DAILY #90 tab 11/26/19 [Last Taken Unknown] simvastatin 20 mg tablet 20 mg PO DAILY #90 tab 11/26/19 [Last Taken Unknown] DULoxetine HCL [Cymbalta] 20 mg PO DAILY 11/27/19 [Last Taken Unknown] Duloxetine HCl [Cymbalta] 60 mg PO DAILY 11/27/19 [Last Taken Unknown] Insulin Degludec [Tresiba FlexTouch U-200] 68 unit SQ DAILY 11/27/19 [Last Taken Unknown] Allergies/Adverse Reactions: Allergies Allergy/AdvReac Type Severity Reaction Status Date / Time doxylamine Allergy itching Verified 11/27/19 15:11 [From Breezeplay (doxylamine)] - Planned Procedure Planned Procedure: diabetic foot ulcer with infection renal failure Medication List Reviewed:: Yes Allergies Verified: Yes Medical History (Last Reviewed 12/01/19 @ 15:18 by Duran Samayoa CRNA) Sjogrens syndrome (Chronic) UTI (urinary tract infection) (Acute) Calculus (=stone) (Acute) Asthma (Chronic) Major depression (Chronic) Arthritis (Chronic) Pain (Chronic) low back pain Fibromyalgia (Chronic) Type 1 diabetes (Chronic) Heart attack (Acute) CKD (chronic kidney disease) stage 3, GFR 30-59 ml/min History of necrotizing fasciitis right foot 2017 Hyperlipidemia Radiculopathy lumbosacral Sacroiliitis Spinal enthesopathy of lumbar region Trochanteric bursitis Surgical History (Last Reviewed 12/01/19 @ 15:18 by Duran Samayoa CRNA) History of tonsillectomy (Acute) History of hysterectomy (Acute) History of cholecystectomy (Acute) Hx of dilation and curettage (Acute) Previous section (Acute) Hx of appendectomy (Acute) History of quadruple bypass (Chronic) History of bilateral carpal tunnel release Family History (Last Reviewed 12/01/19 @ 15:18 by Duran Samayoa CRNA) Father Cancer Hypertension Diabetes Heart disease Arthritis Mother Cancer Diabetes Heart disease Arthritis - Family Anesthesia History Family History:: no untoward family reactions to anesthesia - Airway/Neck/Teeth Within Normal Limits:: Yes Teeth Condition: none Denture Type: Full upper, Full lower Neck Exam: full range of motion Mallampatti Score: 2 Thyromental (T-M) distance: > 6 cm Mandibulo Hyoid distance: > 3 cm - Respiratory Respiratory History: asthma Respiratory Physical: lungs clear Smoking Status: Former smoker Sleep Apnea currently treated: No Sleep Apnea by current assessment: No - Cardiovascular Cardiac History: SD, CAD, hyperlipidemia Tolerate Activity: Fair Heart Sounds: S1 & S2, Regular - Gastrointestinal NPO since: 0800 - Anesthesia Assessment and Plan ASA Class: PS, III Anesthesia Type Plan: MAC Planned difficult intubation/equipment available: No
--- NOTE | 2019-12-01 16:33 | ANES ---
Post Anesthesia Discharge - Transfer of Care Transfer of Care handoff given to nurse: Yes - Anesthesia Post Op Note Anesthesia Post Op Note: Care transferred to med-surgical assist
--- NOTE | 2019-12-01 16:33 | ANES ---
Post Anesthesia Assessment - Vital Signs Vitals: Last Vital Signs Temp 36.4 C 12/01/19 14:53 Pulse 68 12/01/19 14:53 Resp 18 12/01/19 14:53 BP 107/55 12/01/19 14:53 Pulse Ox 93 12/01/19 14:53 Airway Patency: Normal - Mental Status Level Of Consciousness: Awake - Pain Level Pain Score: 0 - N/V Assessment Nausea/Vomiting Presence: None Dehydration:: No
[2019-12-01] MEDS: LEVOFLOXACIN 750 MG TABLET PO SCH (16:46)
--- NOTE | 2019-12-01 16:57 | OR ---
Operative Report - Dictated Report Narrative: OPERATIVE REPORT Date of Surgery: 12/01/2019 Time of Surgery: 1545 Surgeon: Olivia Dumont DPM Car Chaser: None Preoperative Diagnosis: Gangrene right second toe Postoperative Diagnosis: Gangrene right second toe Procedure: Amputation right second toe Pathology: Right second toe sent for culture and pathology Anesthesia: Local with Monitored Anesthesia Care Hemostasis: Pneumatic ankle tourniquet at 250 mmHg of pressure Estimated Blood Loss: Minimal Materials: 2-0 Vicryl suture, 3-0 Nylon suture Injectables: 20 mL of a 1:1 mix of 1% lidocaine and 0.5% Marcaine without Epinephrine Complications: None Procedure in Detail: Patient was brought into the operating room and placed on the operating table in the supine position. Pneumatic ankle tourniquet was placed about the patient's right ankle. Following IV sedation, local anesthesia was obtained about the base of the second metatarsal utilizing a total of 20 mL of a 1:1 mix of 1% lidocaine plain and 0.5% Marcaine plain. The foot was then scrubbed prepped and draped in the usual aseptic manner. [place]umet was then utilized to exsanguinate the patient's right foot and the pneumatic ankle tourniquet was inflated. Attention was directed to the base of the second toe of the right foot where 2 converging longitudinal semielliptical incisions were made encompassing the base of the second toe proximal to all necrotic, gangrenous tissue on the toe. Flaps were created with this incision medial and lateral at the base of the toe to allow for adequate closure following amputation of this toe. Dissection was continued directly down to the level of bone utilizing a #15 blade. Dissection was then continued proximally to the level of the second metatarsal phalangeal joint. The toe was then disarticulated at the level of the second metatarsal phalangeal joint was freed of all surrounding soft tissue attachments and was removed in its entirety. The entire toe will be sent for culture as well as for gross pathologic examination. Attention was redirected back to the surgical site where soft tissues were evaluated for any devitalized or necrotic tissue. All devitalized or necrotic tissue that was encountered was completely excised utilizing a forceps and a #15 blade. This wound was then flushed with copious amounts of sterile normal saline. One final inspection was made to ensure that all devitalized or necrotic tissue had been completely excised from the surgical site and none remained. The head of the second metatarsal was inspected for any possibility of infection. The bone was white in color and firm on palpation. Cartilage was intact. There were no concerns for infection in the second metatarsal on inspection as well as on radiographic evaluation. It was felt that an an adequate toe amputation had been performed. This area was flushed one final time with sterile normal saline. Subcutaneous tissues were then re- approximated and coapted utilizing 2-0 Vicryl suture and the skin was reapproximated and coapted utilizing 3-0 nylon in a simple interrupted suture technique. Following completion of this procedure, the incision and ulceration on the medial great toe were covered with Adaptic and dressed with a sterile compressive dressing consisting of 4 x 4's and Mila covered with an FLIP bandage. The pneumatic ankle tourniquet was deflated and prompt hyperemic response was noted to all remaining digits of the right foot. A postoperative s hoe was then applied. Patient tolerated procedure and anesthesia well. She was transferred to recovery with vital signs stable and vascular status intact all remaining toes of the right foot. Following a period of postoperative monitoring, the patient was transported back to her room on the [facility] floor with the following postoperative instructions: 1. Keep the dressing clean dry and intact 2. Avoid excessive ambulation on the right foot 3. Elevate the right foot while at rest, apply ice as needed 4. Wear surgical shoe on the right foot at all times while ambulating 5. Contact my office for all postoperative follow-up care, and should any problems arise 6. Resume all previous medications as ordered.
--- NOTE | 2019-12-01 18:53 | PN ---
Subjective - Date and Time Seen Date: 12/01/19 Time: 07:35 Subjective Narrative: Nelson had an uneventful night and is rested fairly well. Her blood sugars were measured 296 which is significantly higher than yesterday. But then I found out she ate breakfast at 5 AM and had blood drawn around 6 so it is not fasting. She has been running in the 140s. She has had no fever. The rest of her vital signs are normal. The right second toe is gangrenous. Dr. Dumont saw her yesterday and concurs that amputation is required of the second toe. She has to run it through surgery committee but anticipates doing surgery this afternoon at 330. She in fact has performed that procedure now and she did well through surgery. She is complaining of some surgical foot pain now but it is different than the infection pain that she had before. I will coordinate with Dr. Dumont as to when she might actually be discharged. Objective - Review of Systems Generalized/Overall Review: Reports: No Symptoms Reported EENTM: Reports: No Symptoms Reported Respiratory: Reports: No Symptoms Reported Cardiac: Reports: No Symptoms Reported Abdominal: Reports: No Symptoms Reported Genitourinary Symptoms: Reports: No Symptoms Reported Musculoskeletal Complaints: Reports: Other - Right foot pain Neurological: Reports: No Symptoms Reported Skin: Reports: No Symptoms Reported Endocrine: Reports: No Symptoms Reported - Vitals Vitals: Last Vital Signs Temp 36.6 C 12/01/19 16:29 Pulse 70 12/01/19 17:44 Resp 16 12/01/19 16:59 BP 117/57 12/01/19 17:44 Pulse Ox 97 12/01/19 17:44 - Abnormal Lab Findings Abnormal Lab Findings: Abnormal Lab Results 12/01/19 12/01/19 Range/Units 07:53 07:53 RBC 3.47 L (4.2-5.4) M/mm3 Hgb 10.2 L (12.5-16.0) gm/dL Hct 30.4 L (37.0-47.0) % Monocytes % (Manual) 12 H (0-9) % Eosinophils % (Manual) 4 H (0-3) % BUN 28 H (3-23) mg/dL Creatinine 1.67 H (0.4-1.4) mg/dL Est GFR (Non-Af Amer) 34 L D (60-130) mL/min Random Glucose 239 H D (70-110) mg/dL Albumin 2.7 L (3.4-5.0) gm/dl - Exam Constitutional: Present: Alert, Oriented x3, Cooperative, Well developed, Well nourished, No distress ENT Exam: Present: normal ENT inspection, hearing grossly normal, pharynx normal, TMs normal Neck: Present: non-tender, full range of motion, supple, normal inspection Breasts: Present: Exam deferred Respiratory: Present: chest non-tender, lungs clear, normal breath sounds Cardiovascular/Chest: Present: normal peripheral pulses, regular rate, rhythm, no chest tenderness, no edema, no gallop, no JVD, no murmur, no rub Abdomen: Present: Normal bowel sounds, soft, nontender, nondistended /Rectal: Present: Exam deferred Extremity: Present: normal range of motion, non-tender, normal inspection, no pedal edema, no calf tenderness, normal capillary refill Skin Exam: Present: normal color, warm/dry, no cyanosis Lymphatic: Present: no adenopathy Neurologic: Present: 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 Continue current medical management. Postoperative foot wound management will be directed by Dr. Dumont. 2. Repeat CBC and CMP tomorrow morning. - Problems/Diagnosis (1) Gangrene associated with type 2 diabetes mellitus Problem: Acute (2) Diabetic foot ulcer associated with diabetes mellitus due to underlying condition Problem: Acute Qualifiers: Diabetic foot ulcer location: toe Laterality: right Non-pressure ulcer stage: unspecified non-pressure ulcer stage Qualified Code(s): E08.621 - Diabetes mellitus due to underlying condition with foot ulcer; L97.519 - Non- pressure chronic ulcer of other part of right foot with unspecified severity (3) Diabetic renal disease Problem: Chronic Qualifiers: Diabetes mellitus type: type 2 Qualified Code(s): E11.21 - Type 2 diabetes mellitus with diabetic nephropathy (4) History of quadruple bypass Problem: Chronic
[2019-12-01] MEDS: traZODone HCL 50 MG TABLET PO SCH (20:08)
[2019-12-01] MEDS: SIMVASTATIN 20 MG TABLET PO SCH (20:08)
[2019-12-01] MEDS: MONTELUKAST SODIUM 10 MG TABLET PO SCH (20:09)
[2019-12-01] MEDS: ENOXAPARIN SODIUM 40 MG/0.4 ML SYRG SC SCH (20:09)
[2019-12-01] MEDS: HYDROcodone/ACETAMINOPHEN 1 EACH TABLET PO PRN (21:20)
[2019-12-02] MEDS: INSULIN LISPRO 100 UNITS/ML VIAL SC SCH (07:02)
[2019-12-02] MEDS: rOPINIRole HCL 1 MG TABLET PO SCH (08:30)
[2019-12-02] MEDS: SERTRALINE HCL 50 MG TABLET PO SCH (08:31)
[2019-12-02] MEDS: LISINOPRIL 2.5 MG TABLET PO SCH (08:31)
[2019-12-02] MEDS: MAGNESIUM OXIDE 400 MG TABLET PO SCH (08:31)
[2019-12-02] MEDS: ATENOLOL 25 MG TABLET PO SCH (08:31)
[2019-12-02] MEDS: ASPIRIN 81 MG TABLET.DR PO SCH (08:31)
[2019-12-02] MEDS: CEVIMELINE HCL 30 MG PO SCH ×2 (08:32→12:03)
[2019-12-02] MEDS: DULoxetine HCL 30 MG CAPSULE.SA PO SCH (08:32)
[2019-12-02] MEDS: INSULIN GLARGINE,HUM.REC.ANLOG 100 UNITS/ML VIAL SC SCH (08:32)
[2019-12-02] MEDS: PANTOPRAZOLE SODIUM 40 MG TABLET.EC PO SCH (08:33)
[2019-12-02] MEDS: COLLAGENASE CLOSTRIDIUM HIST. 30 APPL TUBE TP SCH (08:33)
--- NOTE | 2019-12-02 09:27 | DS ---
(1) Gangrene associated with type 2 diabetes mellitus Problem: Acute (2) Diabetic foot ulcer associated with diabetes mellitus due to underlying condition Problem: Acute Qualifiers: Diabetic foot ulcer location: toe Laterality: right Non-pressure ulcer stage: unspecified non-pressure ulcer stage Qualified Code(s): E08.621 - Diabetes mellitus due to underlying condition with foot ulcer; L97.519 - Non- pressure chronic ulcer of other part of right foot with unspecified severity (3) Diabetic renal disease Problem: Chronic Qualifiers: Diabetes mellitus type: type 2 Qualified Code(s): E11.21 - Type 2 diabetes mellitus with diabetic nephropathy (4) History of quadruple bypass Problem: Chronic Date of Discharge:: 12/02/19 Hospital Course: Chelsea Mauricio is a 53-year-old female who was admitted through ER with a infected right second toe and severe hyperglycemia with blood sugars around 550. She was started on IV vancomycin and the culture then grew out beta- hemolytic strep and so she was changed to oral levofloxacin. The vancomycin was discontinued. She was treated through the weekend and then Dr. Dumont saw her in consultation on Saturday and agreed that the second toe required amputation. The blood sugars came under very good control by treating the infectious process and administering insulin. She was taken to surgery yesterday afternoon and had a right second toe amputation. She tolerated the procedure well and to date there is been no complications. She also has an ulceration on the lateral aspect of the great toe from rubbing on the second toe. The amputation should actually help that wound heal as well. Today she is alert oriented and conversant. She is eating well and ambulating with some discomfort in the foot from the surgery. Dr. Dumont is given postop care instructions. She will return to her primary care physician upon discharge. Procedures Performed: see notes below List Procedures: Amputation of the right second toe Care Plan Goals: Tight control of blood sugars Monitoring wound healing. Dr. Dumont to manage all postoperative issues related to the surgery. Results and Findings: Pending Mircobiology Results 11/27/19 13:21 Blood Blood Culture - Preliminary NO GROWTH AFTER 48 HOURS 11/27/19 12:50 Blood Blood Culture - Preliminary NO GROWTH AFTER 48 HOURS Lab Pending Results 11/27/19 12:50: WBC 8.0, RBC 3.74 L, Hgb 11.0 L, Hct 32.3 L, MCV 86.4, MCH 29.4, MCHC 34.1, RDW 13.0, Plt Count 287, MPV 10.4, Immature Gran % (Auto) 1.30 H, Immature Gran # (Auto) 0.10 H, Neutrophils % 67.3, Lymphocytes % 20.2, Monocytes % 7.1, Eosinophils % 3.5 H, Basophils % 0.6, Nucleated RBC % 0.0, Neutrophils # 5.4, Lymphocytes # 1.61, Monocytes # 0.6, Eosinophils # 0.3, Absolute Basophils 0.1 11/27/19 12:50: Sodium 129 L, Plasma Sodium 136, Potassium 5.0 H, Chloride 93 L, Carbon Dioxide 27.8, Anion Gap 13.2, BUN 38 H, Creatinine 1.94 H, Est GFR (Non- Af Amer) 29 L, BUN/Creatinine Ratio 19.6, Random Glucose 517 H, Calcium 9.0, Calcium Adj for Albumin 9.6, Total Bilirubin 0.3, AST 13, ALT 14 L, Alkaline Phosphatase 113, Total Protein 7.9, Albumin 2.9 L 11/28/19 06:26: WBC 6.3 D, RBC 3.58 L, Hgb 10.3 L, Hct 31.2 L, MCV 87.2, MCH 28.8, MCHC 33.0, RDW 13.1, Plt Count 262, MPV 9.8, Immature Gran % (Auto) 2.50 H, Immature Gran # (Auto) 0.16 H, Neutrophils % 58.6, Lymphocytes % 26.0, Monocytes % 7.6, Eosinophils % 4.8 H, Basophils % 0.5, Nucleated RBC % 0.0, Neutrophils # 3.7, Lymphocytes # 1.64, Monocytes # 0.5, Eosinophils # 0.3, Absolute Basophils 0.0 11/28/19 06:26: ESR 109 H 11/28/19 06:26: Sodium 137, Plasma Sodium 139, Potassium 4.7 H, Chloride 100, Carbon Dioxide 29.4, Anion Gap 12.3, BUN 38 H, Creatinine 1.61 H, Est GFR (Non- Af Amer) 35 L D, BUN/Creatinine Ratio 23.6 H, Random Glucose 220 H D, Calcium 9.1, Calcium Adj for Albumin 9.8, Total Bilirubin 0.3, AST 16, ALT 13 L, Alkaline Phosphatase 95, Total Protein 7.3, Albumin 2.7 L 11/29/19 06:20: WBC 6.4, RBC 3.44 L, Hgb 9.9 L, Hct 29.8 L, MCV 86.6, MCH 28.8, MCHC 33.2, RDW 13.1, Plt Count 274, MPV 9.3, Immature Gran % (Auto) 3.60 H, Immature Gran # (Auto) 0.23 H, Neutrophils % 57.1, Lymphocytes % 26.6, Monocytes % 8.2, Eosinophils % 3.9 H, Basophils % 0.6, Nucleated RBC % 0.0, Neutrophils # 3.7, Lymphocytes # 1.71, Monocytes # 0.5, Eosinophils # 0.3, Absolute Basophils 0.0 11/29/19 06:20: Sodium 140, Plasma Sodium 141, Potassium 4.6, Chloride 104, Carbon Dioxide 27.9, Anion Gap 12.7, BUN 27 H, Creatinine 1.34, Est GFR (Non-Af Amer) 44 L D, BUN/Creatinine Ratio 20.1, Random Glucose 147 H D, Calcium 9.0, Calcium Adj for Albumin 9.8, Total Bilirubin 0.3, AST 18, ALT 18 L, Alkaline Phosphatase 81, Total Protein 7.2, Albumin 2.6 L, Vancomycin Trough 14.9 12/01/19 07:53: WBC 7.2, RBC 3.47 L, Hgb 10.2 L, Hct 30.4 L, MCV 87.6, MCH 29.4, MCHC 33.6, RDW 13.2, Plt Count 341, MPV 9.2, Neutrophils % (Manual) 61, Lymphocytes % (Manual) 23, Monocytes % (Manual) 12 H, Eosinophils % (Manual) 4 H, Neutrophils # (Manual) 4.4, Lymphocytes # (Manual) 1.7, Monocytes # (Manual) 0.9, Eosinophils # (Manual) 0.3, Platelet Estimate Normal, RBC Morphology Normal 12/01/19 07:53: Sodium 136, Plasma Sodium 138, Potassium 4.6, Chloride 101, Carbon Dioxide 27.5, Anion Gap 12.1, BUN 28 H, Creatinine 1.67 H, Est GFR (Non- Af Amer) 34 L D, BUN/Creatinine Ratio 16.8, Random Glucose 239 H D, Calcium 8.9, Calcium Adj for Albumin 9.6, Total Bilirubin 0.3, AST 35, ALT 25, Alkaline Phosphatase 85, Total Protein 7.4, Albumin 2.7 L Discharge Location: Home Disposition: Home self-care Condition: Good Face to Face Encounter completed per [facility] Guidelines: No Discharge Activity: Activity as tolerated, Partial-Weight bearing Discharge Diet: Consistent carbs Additional Patient Instructions (free text): Dr Dumont's instructions: 1. Keep the dressing clean dry and intact 2. Avoid excessive ambulation on the right foot 3. Elevate the right foot while at rest, apply ice as needed 4. Wear surgical shoe on the right foot at all times while ambulating 5. Contact my office for all postoperative follow-up care, and should any problems arise 6. Resume all previous medications as ordered. See Dr. Raymond see in 2 weeks. Complete Home Medications List: Complete Home Medication List: albuterol sulfate 90 mcg/actuation aerosol inhaler 1 inh IH Q6H PRN 03/11/19 aspirin 325 mg tablet 325 mg PO DAILY 03/11/19 atenolol 25 mg tablet 6.25 mg PO DAILY 03/11/19 cholecalciferol (vitamin D3) 125 mcg (5,000 unit) tablet 5,000 unit PO DAILY 03/11/19 lisinopril 2.5 mg tablet 2.5 mg PO DAILY 03/11/19 magnesium 250 mg tablet 250 mg PO BID 03/11/19 montelukast 10 mg tablet 10 mg PO DAILY 03/11/19 multivitamin 1 each PO DAILY 03/11/19 sertraline 100 mg tablet 150 mg PO DAILY tab 03/11/19 trazodone 100 mg tablet 100 mg PO HS 03/11/19 cevimeline 30 mg capsule 30 mg PO TID 07/08/19 peg 400-propylene glycol 0.4 %-0.3 % eye drops 1 drp OP BID PRN 07/08/19 cyclobenzaprine 5 mg tablet 5 mg PO TID PRN #60 tab 07/28/19 omeprazole 40 mg capsule,delayed release 40 mg PO DAILY #90 cap 08/12/19 ropinirole 5 mg tablet 20 mg PO BID #180 tab 08/12/19 fluticasone propionate 50 mcg/actuation nasal spray,suspension 1 spray TIM BID PRN #18.2 ml 11/26/19 glimepiride 4 mg tablet 4 mg PO DAILY #90 tab 11/26/19 simvastatin 20 mg tablet 20 mg PO DAILY #90 tab 11/26/19 DULoxetine HCL [Cymbalta] 20 mg PO DAILY 11/27/19 Duloxetine HCl [Cymbalta] 60 mg PO DAILY 11/27/19 Insulin Degludec [Tresiba Flextouch U-200] 68 unit SQ DAILY 11/27/19 Acetaminophen [Mapap] 500 mg PO QID PRN #100 tab 12/02/19 HYDROcodone/ACETAMINOPHEN [[place] 5-325] 1 ea PO Q6H PRN #30 tab 12/02/19 Insulin Lispro [Humalog] See Protocol SC ACINS #5 vial 12/02/19 Levofloxacin [Levaquin] 750 mg PO DAILY@1100 #5 tab 12/02/19 Forms: Patient Portal Registration
[2019-12-02] MEDS ORDERED: INSULIN LISPRO 100 UNITS/ML VIAL SC SCH (12:00)
[2019-12-02] MEDS: LEVOFLOXACIN 750 MG TABLET PO SCH (12:03)
[2019-12-02 12:30] VITALS: BP 127/68
--- NOTE | 2019-12-02 12:36 | PN ---
Subjective - Date and Time Seen Date: 12/02/19 Time: 11:45 Subjective Narrative: Patient is seen at bedside for post-operative follow up after right 2nd toe amputation performed yesterday. States she is feeling good. Denies any pain in the foot, only some occasional tingling sensations. She has been up to the restroom in her surgical shoe without complication. Dressing has been kept clean, dry, and intact. Denies any nausea, vomiting, fevers, or chills. States she is ready to go home. Objective - Review of Systems Generalized/Overall Review: Denies: Weakness, Chills, Fever, Malaise Respiratory: Denies: Shortness of Breath Cardiac: Reports: Edema Abdominal: Denies: Nausea, Vomiting, Diarrhea Musculoskeletal Complaints: Reports: Other - recent right 2nd toe amputation Neurological: Reports: Tingling Skin: Reports: Other - right great toe ulcer, incision following 2nd toe amputation - Vitals Vitals: Last Vital Signs Temp 36.4 C 12/02/19 06:41 Pulse 74 12/02/19 08:31 Resp 20 12/02/19 06:41 BP 112/53 12/02/19 08:31 Pulse Ox 99 12/02/19 06:41 - Exam Constitutional: Present: Alert, Oriented x3, Cooperative, No distress Extremity: Present: lower extremity edema Skin Exam: Present: other - Dressing to right foot clean, dry intact with minimal bloody drainage following surgery. Incision at amputation site of 2nd toe well approximated with sutures intact. There is a scant amount of bloody drainage from the incision. Surrounding skin is warm, pink, intact. CRFT brisk to all remaining toes. Ulceration to medial right great toe remains unchanged in size from previous evaluation. Still with fibrinous base, but there appears to be increased granulation tissue about the periphery today. Scant serous drainage, no malodor. No exposed tendon or bone. No localized SOI. Appearance: Present: appropriate appearance Eye contact: Present: cooperative Assessment/Plan Plan Narrative: Post op day #1 following amputation of the right 2nd toe due to gangrene of the toe. She is progressing as expected at day 1 following surgery. Incision healing as expected. Ulceration of the great toe with no significant changes today. New dressing of adaptic, dry gauze, roll gauze, and FLIP bandage applied today. To be kept CDI until next visit. She may continue to bear weight as tolerated in surgical shoe, however encourage her to minimize her weightbearing activities at this time. Elevate extremity frequently to reduce swelling. She is clear from my standpoint for discharge home today and I will plan follow up this 12/04/2019. Appointment date and time is given to her nurse for discharge instructions. She is to call or seek medical attention immediately if she develops fever, drainage, increased pain, increased swelling, numbness, or any other significant change. - Problems/Diagnosis (1) Gangrene associated with type 2 diabetes mellitus Problem: Acute
== END 2019-12-02 12:30 | disposition home or self-care (01) | DRG 256 ==
LOC: ER 12:07 → MS 13:39
PROVIDERS: ADMIT Family Medicine; ATTEND Family Medicine
DX: N18.3 Chronic kidney disease, stage 3 (moderate); E86.0 Dehydration; E10.621 Type 1 diabetes mellitus with foot ulcer; B95.1 Streptococcus, group B, as the cause of diseases classified elsewhere; L97.512 Non-pressure chronic ulcer of other part of right foot with fat layer exposed; I13.10 Hypertensive heart and chronic kidney disease without heart failure, with stage 1 through stage 4 chronic kidney disease, or unspecified chronic kidney disease; I25.10 Atherosclerotic heart disease of native coronary artery without angina pectoris; E10.52 Type 1 diabetes mellitus with diabetic peripheral angiopathy with gangrene; E10.22 Type 1 diabetes mellitus with diabetic chronic kidney disease; I12.9 Hypertensive chronic kidney disease with stage 1 through stage 4 chronic kidney disease, or unspecified chronic kidney disease; E10.65 Type 1 diabetes mellitus with hyperglycemia; N17.9 Acute kidney failure, unspecified; Z95.1 Presence of aortocoronary bypass graft; Z79.4 Long term (current) use of insulin; Z87.891 Personal history of nicotine dependence; I70.268 Atherosclerosis of native arteries of extremities with gangrene, other extremity
CPT/HCPCS: 36415; 73630; 80053; 80202; 85007; 85025; 85652; 87040; 87070; 87077; 87081; 87106; 87186; 88307; 88311; 88888; 96365; 99285